=== PATIENT | male | born 1940 | race Caucasian/White ===

== ENCOUNTER 2018-03-16 01:52 | Inpatient (IN) | payer OTHER ==
[2018-03-16] MEDS ORDERED: NA PHOSPHATE/BIPHOS 133 ML ENEMA PR (06:00)
[2018-03-16] MEDS ORDERED: ALBUTEROL/IPRATROPIUM (NEB) 3 ML AMP HHN (06:00)
[2018-03-16] MEDS ORDERED: IPRATROPIUM (NEB) 0.5 MG/2.5 ML AMP HHN (06:00)
[2018-03-16] MEDS ORDERED: BISACODYL 10 MG SUPP PR (06:00)
[2018-03-16 06:42] LABS: ADD MAN DIFF? NO
[2018-03-16 06:52] LABS: WHITE BLOOD COUNT 9.5 10^3/ul (4.8-10.8)
[2018-03-16 06:52] LABS: ABNORMAL IP MESSAGE 1; BASOPHILS % 0.4 % (0.0-2.0); EOSINOPHILS # 0.1 10^3/ul (0.0-0.5); EOSINOPHILS % 0.6 % (0.0-7.0); HEMOGLOBIN 9.9 g/dl (14.0-18.0); LYMPHOCYTES # 0.4 10^3/ul (0.8-2.9); LYMPHOCYTES % 3.9 % (15.0-51.0); MEAN CORPUSCULAR HEMOGLOBIN 28.4 pg (29.0-33.0); MEAN CORPUSCULAR VOLUME 86.2 fl (82.0-101.0); MEAN PLATELET VOLUME 9.2 fl (7.4-10.4); MONOCYTE # 0.4 10^3/ul (0.3-0.9); MONOCYTES % 3.7 % (0.0-11.0); NEUTROPHIL # 8.6 10^3/ul (1.6-7.5); NEUTROPHILS % 89.9 % (39.0-77.0); PLATELET COUNT 223 10^3/UL (140-415); POSITIVE DIFF @See below; RED BLOOD COUNT 3.48 10^6/ul (4.70-6.10); RED CELL DISTRIBUTION WIDTH 14.5 % (11.5-14.5)
[2018-03-16 07:18] LABS: ANION GAP 13 (8-16); BLOOD UREA NITROGEN 13 mg/dl (7-20); CALCIUM 8.7 mg/dl (8.4-10.2); CARBON DIOXIDE 26 mmol/L (21-31); CHLORIDE 96 mmol/L (97-110); CREATININE 0.48 mg/dl (0.61-1.24); GLUCOSE 114 mg/dl (70-220); POTASSIUM 4.7 mmol/L (3.5-5.1); SODIUM 130 mmol/L (135-144)
[2018-03-16] MEDS: VANCOMYCIN 1 GM (PMX) 250 ML IVPB (07:30)
[2018-03-16] MEDS: DEXTROSE 5%-0.45% NACL 1,000 ML IV ×2 (07:30→19:20)
[2018-03-16] MEDS: PANTOPRAZOLE 40 MG INJ IV (07:31)
[2018-03-16] MEDS: morphine 2 MG INJ IV ×3 (09:29→20:30)
[2018-03-16] MEDS: CEFEPIME 1GM/50 ML (PMX) 50 ML IVPB ×2 (09:29→20:22)
[2018-03-16] MEDS ORDERED: FLUCONAZOLE 100 MG/NS (PMX) 50 ML IVPB (15:30)
[2018-03-16] MEDS: NYSTATIN SUSP 5 ML CUP PO ×2 (16:13→20:22)
[2018-03-16] MEDS: LACTULOSE ENEMA 1,000 ML BTL PR (16:13)
[2018-03-16] MEDS: FLUCONAZOLE 100 MG/NS (PMX) 50 ML IVPB (16:13)
[2018-03-17] MEDS: morphine 2 MG INJ IV ×4 (00:40→16:10)
[2018-03-17] MEDS: PANTOPRAZOLE 40 MG INJ IV (06:41)
[2018-03-17 06:45] LABS: ADD MAN DIFF? NO
[2018-03-17 06:50] LABS: ABNORMAL IP MESSAGE 1; BASOPHILS % 0.4 % (0.0-2.0); EOSINOPHILS # 0.1 10^3/ul (0.0-0.5); EOSINOPHILS % 1.3 % (0.0-7.0); HEMATOCRIT 30.2 % (42.0-52.0); HEMOGLOBIN 10.2 g/dl (14.0-18.0); LYMPHOCYTES # 0.3 10^3/ul (0.8-2.9); LYMPHOCYTES % 4.2 % (15.0-51.0); MEAN CORPUSCULAR HGB CONC 33.8 g/dl (32.0-37.0); MEAN CORPUSCULAR VOLUME 85.8 fl (82.0-101.0); MEAN PLATELET VOLUME 9.1 fl (7.4-10.4); MONOCYTE # 0.4 10^3/ul (0.3-0.9); MONOCYTES % 5.6 % (0.0-11.0); NEUTROPHIL # 6.2 10^3/ul (1.6-7.5); NEUTROPHILS % 87.2 % (39.0-77.0); PLATELET COUNT 220 10^3/UL (140-415); POSITIVE DIFF @See below; RED BLOOD COUNT 3.52 10^6/ul (4.70-6.10); RED CELL DISTRIBUTION WIDTH 14.4 % (11.5-14.5)
[2018-03-17 06:50] LABS: WHITE BLOOD COUNT 7.2 10^3/ul (4.8-10.8)
[2018-03-17 07:16] LABS: ANION GAP 15 (8-16); BLOOD UREA NITROGEN 10 mg/dl (7-20); CALCIUM 8.8 mg/dl (8.4-10.2); CARBON DIOXIDE 24 mmol/L (21-31); CHLORIDE 96 mmol/L (97-110); CREATININE 0.53 mg/dl (0.61-1.24); GLUCOSE 109 mg/dl (70-220); POTASSIUM 4.7 mmol/L (3.5-5.1); SODIUM 130 mmol/L (135-144)
[2018-03-17] MEDS: DEXTROSE 5%-0.45% NACL 1,000 ML IV ×2 (08:59→22:08)
[2018-03-17] MEDS: NYSTATIN SUSP 5 ML CUP PO ×4 (09:04→22:14)
[2018-03-17] MEDS: ONDANSETRON 4 MG INJ IV (09:05)
[2018-03-17] MEDS: CEFEPIME 1GM/50 ML (PMX) 50 ML IVPB ×2 (09:05→22:10)
[2018-03-17] MEDS: FLUCONAZOLE 200 MG/NS (PMX) 100 ML IVPB (17:10)
[2018-03-18] MEDS: PANTOPRAZOLE 40 MG INJ IV (05:48)
[2018-03-18] MEDS ORDERED: VANCOMYCIN IV PER PHARMACY XX (12:30)
[2018-03-18] MEDS: NYSTATIN SUSP 5 ML CUP PO ×4 (13:40→21:00)
[2018-03-18] MEDS: CEFEPIME 1GM/50 ML (PMX) 50 ML IVPB ×2 (13:41→20:37)
[2018-03-18] MEDS: ENOXAPARIN 40 MG/0.4 ML SYG SC (14:09)
[2018-03-18] MEDS: DEXTROSE 5%-0.45% NACL 1,000 ML IV (14:17)
[2018-03-18] MEDS: VANCOMYCIN 1.25 GM in SOD CHLORIDE 0.9% 250 ML IVPB (14:19)
[2018-03-18] MEDS: FLUCONAZOLE 200 MG/NS (PMX) 100 ML IVPB (17:46)
[2018-03-18] MEDS ORDERED: VITAMIN A & D 5 GM OINT PACKET TOP (19:45)
[2018-03-18] MEDS: morphine 2 MG INJ IV (20:32)
[2018-03-19] MEDS: DEXTROSE 5%-0.45% NACL 1,000 ML IV ×2 (00:40→14:12)
[2018-03-19] MEDS: morphine 2 MG INJ IV ×2 (03:08→23:45)
[2018-03-19] MEDS: VANCOMYCIN 750 MG in SOD CHLORIDE 0.9% 150 ML IVPB ×2 (03:08→16:11)
[2018-03-19] MEDS: PANTOPRAZOLE 40 MG INJ IV (06:54)
[2018-03-19 07:18] LABS: ADD MAN DIFF? NO
[2018-03-19 07:23] LABS: ABNORMAL IP MESSAGE 1; BASOPHILS % 0.4 % (0.0-2.0); EOSINOPHILS # 0.1 10^3/ul (0.0-0.5); EOSINOPHILS % 1.9 % (0.0-7.0); HEMATOCRIT 34.9 % (42.0-52.0); LYMPHOCYTES # 0.5 10^3/ul (0.8-2.9); LYMPHOCYTES % 9.5 % (15.0-51.0); MEAN CORPUSCULAR HEMOGLOBIN 28.7 pg (29.0-33.0); MEAN CORPUSCULAR HGB CONC 31.5 g/dl (32.0-37.0); MEAN CORPUSCULAR VOLUME 91.1 fl (82.0-101.0); MONOCYTE # 0.4 10^3/ul (0.3-0.9); MONOCYTES % 8.4 % (0.0-11.0); NEUTROPHIL # 4.1 10^3/ul (1.6-7.5); PLATELET COUNT 239 10^3/UL (140-415); POSITIVE DIFF @See below; RED BLOOD COUNT 3.83 10^6/ul (4.70-6.10); RED CELL DISTRIBUTION WIDTH 14.4 % (11.5-14.5)
[2018-03-19 07:23] LABS: WHITE BLOOD COUNT 5.1 10^3/ul (4.8-10.8)
[2018-03-19 07:35] LABS: PHOSPHORUS 2.8 mg/dl (2.5-4.9)
[2018-03-19 07:35] LABS: MAGNESIUM 2.2 mg/dl (1.7-2.5)
[2018-03-19 07:55] LABS: INR 1.25; PROTIME 15.9 Sec (11.9-14.9); PT RATIO 1.2
[2018-03-19 08:10] LABS: ANION GAP 14 (8-16); BLOOD UREA NITROGEN 8 mg/dl (7-20); CALCIUM 9.2 mg/dl (8.4-10.2); CARBON DIOXIDE 18 mmol/L (21-31); CHLORIDE 104 mmol/L (97-110); CREATININE 0.53 mg/dl (0.61-1.24); GLUCOSE 112 mg/dl (70-220); POTASSIUM 4.1 mmol/L (3.5-5.1); SODIUM 132 mmol/L (135-144)
[2018-03-19] MEDS: ENOXAPARIN 40 MG/0.4 ML SYG SC (08:10)
[2018-03-19] MEDS: CEFEPIME 1GM/50 ML (PMX) 50 ML IVPB ×2 (08:16→20:46)
[2018-03-19] MEDS: NYSTATIN SUSP 5 ML CUP PO ×4 (08:17→20:46)
[2018-03-19] MEDS: CEFAZOLIN 1 GM/50 ML (PMX) 50 ML IVPB (11:33)
[2018-03-19] MEDS: LIDOCAINE 2% (SDV) 5 ML INJ (11:53)
[2018-03-19] MEDS: PROPOFOL 60 ML (11:53)
[2018-03-19] MEDS ORDERED: morphine LIQ (10 MG/5 ML) CUP GTB (14:00)
[2018-03-19] MEDS ORDERED: morphine LIQ (10 MG/5 ML) CUP PO ×2 (14:00→18:00)
[2018-03-19] MEDS: FLUCONAZOLE 200 MG/NS (PMX) 100 ML IVPB (18:36)
[2018-03-20] MEDS: DEXTROSE 5%-0.45% NACL 1,000 ML IV ×2 (03:20→10:07)
[2018-03-20 03:37] LABS: VANCOMYCIN,TROUGH 7.8 ug/ml (10.0-20.0)
[2018-03-20] MEDS: VANCOMYCIN 1 GM 250 ML IVPB ×2 (04:19→15:37)
[2018-03-20] MEDS: PANTOPRAZOLE 40 MG INJ IV (06:13)
[2018-03-20] MEDS: NYSTATIN SUSP 5 ML CUP PO ×4 (08:37→20:42)
[2018-03-20] MEDS: CEFEPIME 1GM/50 ML (PMX) 50 ML IVPB ×2 (08:37→20:42)
[2018-03-20] MEDS: ENOXAPARIN 40 MG/0.4 ML SYG SC (09:13)
[2018-03-20] MEDS: morphine 2 MG INJ IV ×3 (10:04→22:03)
[2018-03-20] MEDS: FLUCONAZOLE 200 MG/NS (PMX) 100 ML IVPB (18:07)
[2018-03-20] MEDS ORDERED: KETOROLAC 15 MG INJ IV (22:30)
[2018-03-20] MEDS ORDERED: DIPHENHYDRAMINE 50 MG INJ IV (22:30)
[2018-03-20] MEDS ORDERED: METHYLPREDNISOLONE 125 MG INJ IV (22:30)
[2018-03-21] MEDS: VANCOMYCIN 1 GM 250 ML IVPB ×2 (03:35→16:17)
[2018-03-21] MEDS: DEXTROSE 5%-0.45% NACL 1,000 ML IV (03:35)
[2018-03-21] MEDS: PANTOPRAZOLE 40 MG INJ IV (06:44)
[2018-03-21] MEDS: CEFEPIME 1GM/50 ML (PMX) 50 ML IVPB (08:19)
[2018-03-21] MEDS: ENOXAPARIN 40 MG/0.4 ML SYG SC (08:25)
[2018-03-21] MEDS: NYSTATIN SUSP 5 ML CUP PO ×3 (08:26→17:55)
[2018-03-21] MEDS: morphine LIQ (10 MG/5 ML) CUP GTB (16:12)
[2018-03-21] MEDS: FLUCONAZOLE 200 MG/NS (PMX) 100 ML IVPB (17:55)
== END 2018-03-21 20:10 | disposition home or self-care (01) | DRG 391 ==
LOC: MS1 01:52 → TEL 03:24
PROC: 0DH63UZ Insertion of Feeding Device into Stomach, Percutaneous Approach (ICD-10-PCS; principal; 2018-03-19 11:30)
DX: R13.10 Dysphagia, unspecified (principal); E43 Unspecified severe protein-calorie malnutrition; L03.211 Cellulitis of face; E87.1 Hypo-osmolality and hyponatremia; R65.10 Systemic inflammatory response syndrome (SIRS) of non-infectious origin without acute organ dysfunction; B37.0 Candidal stomatitis; E86.0 Dehydration; C76.0 Malignant neoplasm of head, face and neck; Z68.23 Body mass index [BMI] 23.0-23.9, adult; D64.9 Anemia, unspecified; Z87.891 Personal history of nicotine dependence; I10 Essential (primary) hypertension
CPT/HCPCS: 71045; 80048; 80202; 83735; 84100; 85025; 85610; 92610

== ENCOUNTER 2018-03-26 15:17 | Emergency (ER) | payer OTHER ==
[2018-03-26] MEDS: SOD CHLORIDE 0.9% 1,000 ML IV (19:12)
[2018-03-26] MEDS: IOHEXOL 14.3 MG(I)/ML (ADULT) BTL PO (21:12)
== END 2018-03-27 01:26 | disposition home or self-care (01) ==
LOC: E/R 03-27 01:26
DX: K59.00 Constipation, unspecified (principal); Z85.830 Personal history of malignant neoplasm of bone
CPT/HCPCS: 74176; 99285-25

== ENCOUNTER 2018-05-06 10:58 | Inpatient (IN) | payer OTHER ==
[2018-05-06] MEDS: morphine 2 MG INJ IV (11:56)
[2018-05-06] MEDS: ONDANSETRON 4 MG INJ IV (11:56)
[2018-05-06 12:05] LABS: WHITE BLOOD COUNT 1.6 10^3/ul (4.8-10.8)
[2018-05-06 12:06] LABS: ABNORMAL IP MESSAGE 1; HEMATOCRIT 28.6 % (42.0-52.0); HEMOGLOBIN 9.3 g/dl (14.0-18.0); MEAN CORPUSCULAR HEMOGLOBIN 29.2 pg (29.0-33.0); MEAN CORPUSCULAR HGB CONC 32.5 g/dl (32.0-37.0); MEAN CORPUSCULAR VOLUME 89.9 fl (82.0-101.0); MEAN PLATELET VOLUME 9.3 fl (7.4-10.4); PLATELET COUNT 209 10^3/UL (140-415); POSITIVE DIFF @See below; RED BLOOD COUNT 3.18 10^6/ul (4.70-6.10); RED CELL DISTRIBUTION WIDTH 16.7 % (11.5-14.5)
[2018-05-06 12:11] LABS: ADD MAN DIFF? YES
[2018-05-06 12:37] LABS: ANION GAP 14 (8-16); BLOOD UREA NITROGEN 21 mg/dl (7-20); CARBON DIOXIDE 23 mmol/L (21-31); CHLORIDE 98 mmol/L (97-110); CREATININE 0.45 mg/dl (0.61-1.24); GLUCOSE 149 mg/dl (70-220); POTASSIUM 4.8 mmol/L (3.5-5.1); SODIUM 130 mmol/L (135-144)
[2018-05-06 13:06] LABS: ANISOCYTOSIS 1+ (0-0); BAND NEUTROPHILS #M 0.1 10^3/ul (0.0-0.6); BAND NEUTROPHILS % (M) 12 % (0-4); EOSINOPHILS % (M) 2 % (0-7); ERYTHROBLAST% (NRBC) (M) 1 % (0-0); LYMPHOCYTES #M 0.2 10^3/ul (0.8-2.9); LYMPHOCYTES % (M) 13 % (15-51); MICROCYTOSIS 1+ (0-0); MONOCYTE #M 0.2 10^3/ul (0.3-0.9); MONOCYTES % (M) 14 % (0-11); PLATELET ESTIMATE NORMAL; POIKILOCYTOSIS 1+ (0-0); POLYCHROMASIA 3+ (0-0); SEG NEUT #M 0.9 10^3/ul (1.6-7.5); SEGMENTED NEUTROPHILS (M) % 59 % (39-77); SMUDGE%M 2 % (0-0)
[2018-05-06] MEDS ORDERED: ONDANSETRON 4 MG INJ IV (17:00)
[2018-05-06] MEDS ORDERED: NACL 0.9% 3 ML SYG IV (17:00)
[2018-05-06] MEDS ORDERED: NA PHOSPHATE/BIPHOS 133 ML ENEMA PR (17:00)
[2018-05-06] MEDS ORDERED: FLUCONAZOLE 200 MG (PMX) 100 ML IVPB (18:00)
[2018-05-06] MEDS: SOD CHLORIDE 0.9% 1,000 ML IV (18:15)
[2018-05-06] MEDS: NYSTATIN SUSP 5 ML CUP PO ×2 (18:44→21:47)
[2018-05-06] MEDS: VORICONAZOLE 200 MG TAB GTB (21:47)
[2018-05-07] MEDS: morphine 2 MG INJ IV ×4 (00:06→21:33)
[2018-05-07] MEDS: PANTOPRAZOLE 40 MG INJ IV (05:11)
[2018-05-07] MEDS: SOD CHLORIDE 0.9% 1,000 ML IV ×2 (05:12→09:50)
[2018-05-07 05:36] LABS: ADD MAN DIFF? NO
[2018-05-07 05:41] LABS: ABNORMAL IP MESSAGE 1; BASOPHILS % 0.6 % (0.0-2.0); EOSINOPHILS % 0.6 % (0.0-7.0); HEMATOCRIT 27.4 % (42.0-52.0); LYMPHOCYTES # 0.2 10^3/ul (0.8-2.9); LYMPHOCYTES % 13.5 % (15.0-51.0); MEAN CORPUSCULAR HEMOGLOBIN 29.9 pg (29.0-33.0); MEAN CORPUSCULAR HGB CONC 32.8 g/dl (32.0-37.0); MEAN PLATELET VOLUME 9.5 fl (7.4-10.4); MONOCYTE # 0.4 10^3/ul (0.3-0.9); MONOCYTES % 28.4 % (0.0-11.0); NEUTROPHIL # 0.9 10^3/ul (1.6-7.5); NEUTROPHILS % 56.3 % (39.0-77.0); PLATELET COUNT 204 10^3/UL (140-415); POSITIVE DIFF @See below; RED BLOOD COUNT 3.01 10^6/ul (4.70-6.10)
[2018-05-07 05:41] LABS: WHITE BLOOD COUNT 1.6 10^3/ul (4.8-10.8)
[2018-05-07 07:44] LABS: ANION GAP 13 (8-16); BLOOD UREA NITROGEN 17 mg/dl (7-20); CALCIUM 8.8 mg/dl (8.4-10.2); CARBON DIOXIDE 25 mmol/L (21-31); CHLORIDE 99 mmol/L (97-110); CREATININE 0.47 mg/dl (0.61-1.24); GLUCOSE 131 mg/dl (70-220); POTASSIUM 4.7 mmol/L (3.5-5.1); SODIUM 132 mmol/L (135-144)
[2018-05-07] MEDS: VORICONAZOLE 200 MG TAB GTB ×2 (08:43→21:33)
[2018-05-07] MEDS: NYSTATIN SUSP 5 ML CUP PO ×4 (08:43→21:33)
[2018-05-07] MEDS: ENOXAPARIN 40 MG/0.4 ML SYG SC (08:46)
[2018-05-07] MEDS: DIPHENHYD/MYLANTA/LIDO (PO SYG) PO ×2 (12:42→21:34)
[2018-05-07] MEDS: morphine LIQ (10 MG/5 ML) CUP PO (15:34)
[2018-05-07] MEDS: FILGRASTIM 480 MCG INJ SC (18:03)
[2018-05-07] MEDS: CLOTRIMAZOLE 10 MG TROCHE MT (21:33)
[2018-05-08] MEDS: SOD CHLORIDE 0.9% 1,000 ML IV ×3 (01:57→21:55)
[2018-05-08] MEDS: PANTOPRAZOLE 40 MG INJ IV (05:20)
[2018-05-08 06:16] LABS: ADD MAN DIFF? NO
[2018-05-08 06:17] LABS: ABNORMAL IP MESSAGE 1; BASOPHILS % 0.2 % (0.0-2.0); HEMATOCRIT 27.3 % (42.0-52.0); HEMOGLOBIN 9.1 g/dl (14.0-18.0); LYMPHOCYTES # 0.2 10^3/ul (0.8-2.9); LYMPHOCYTES % 4.6 % (15.0-51.0); MEAN CORPUSCULAR HEMOGLOBIN 30.2 pg (29.0-33.0); MEAN CORPUSCULAR HGB CONC 33.3 g/dl (32.0-37.0); MEAN CORPUSCULAR VOLUME 90.7 fl (82.0-101.0); MEAN PLATELET VOLUME 9.3 fl (7.4-10.4); MONOCYTE # 0.5 10^3/ul (0.3-0.9); MONOCYTES % 11.1 % (0.0-11.0); NEUTROPHIL # 3.4 10^3/ul (1.6-7.5); NEUTROPHILS % 82.9 % (39.0-77.0); PLATELET COUNT 195 10^3/UL (140-415); POSITIVE DIFF @See below; RED BLOOD COUNT 3.01 10^6/ul (4.70-6.10); RED CELL DISTRIBUTION WIDTH 17.4 % (11.5-14.5)
[2018-05-08 06:17] LABS: WHITE BLOOD COUNT 4.1 10^3/ul (4.8-10.8)
[2018-05-08 07:48] LABS: ANISOCYTOSIS 1+ (0-0); BAND NEUTROPHILS % (M) 49 % (0-4); GIANT THROMBO% (M) 1 % (0-0); LYMPHOCYTES #M 0.2 10^3/ul (0.8-2.9); LYMPHOCYTES % (M) 5 % (15-51); MONOCYTE #M 0.6 10^3/ul (0.3-0.9); MONOCYTES % (M) 15 % (0-11); PLATELET ESTIMATE NORMAL; POLYCHROMASIA 1+ (0-0); REACTIVE LYMPHOCYTES% (M) 2 % (0-0); SEG NEUT #M 1.3 10^3/ul (1.6-7.5); SEGMENTED NEUTROPHILS (M) % 29 % (39-77); SMUDGE%M 7 % (0-0)
[2018-05-08] MEDS: NYSTATIN SUSP 5 ML CUP PO ×4 (08:56→21:17)
[2018-05-08] MEDS: CLOTRIMAZOLE 10 MG TROCHE MT ×3 (09:00→21:17)
[2018-05-08] MEDS: VORICONAZOLE 200 MG TAB GTB ×2 (09:00→21:17)
[2018-05-08] MEDS: ENOXAPARIN 40 MG/0.4 ML SYG SC (09:02)
[2018-05-08] MEDS: morphine 2 MG INJ IV ×3 (09:15→21:12)
[2018-05-08] MEDS: DIPHENHYD/MYLANTA/LIDO (PO SYG) PO ×4 (09:39→21:20)
[2018-05-08] MEDS ORDERED: D5W-0.45 NACL + KCL 20 MEQ 0 ML IV (21:49)
[2018-05-09] MEDS: morphine 2 MG INJ IV ×5 (01:09→20:04)
[2018-05-09] MEDS: PANTOPRAZOLE 40 MG INJ IV (05:18)
[2018-05-09] MEDS: LEVOFLOXACIN 500 MG TAB NGT (05:24)
[2018-05-09 05:49] LABS: ANION GAP 11 (8-16); BLOOD UREA NITROGEN 12 mg/dl (7-20); CALCIUM 8.8 mg/dl (8.4-10.2); CARBON DIOXIDE 23 mmol/L (21-31); CHLORIDE 105 mmol/L (97-110); CREATININE 0.47 mg/dl (0.61-1.24); GLUCOSE 125 mg/dl (70-220); SODIUM 135 mmol/L (135-144)
[2018-05-09] MEDS: VORICONAZOLE 200 MG TAB GTB ×2 (08:57→20:04)
[2018-05-09] MEDS: CLOTRIMAZOLE 10 MG TROCHE MT ×3 (08:57→20:04)
[2018-05-09] MEDS: NYSTATIN SUSP 5 ML CUP PO ×4 (08:57→20:04)
[2018-05-09] MEDS: ENOXAPARIN 40 MG/0.4 ML SYG SC (08:57)
[2018-05-09] MEDS: DIPHENHYD/MYLANTA/LIDO (PO SYG) PO ×4 (11:33→20:04)
[2018-05-09] MEDS ORDERED: VANCOMYCIN IV PER PHARMACY XX (15:00)
[2018-05-09] MEDS: VANCOMYCIN 1.25 GM in SOD CHLORIDE 0.9% 250 ML IVPB (16:42)
[2018-05-09] MEDS ORDERED: DOCUSATE SODIUM 10 MG/ML (10ML CUP) (19:58)
[2018-05-09] MEDS ORDERED: DOCUSATE SODIUM 100 MG CAP PO (21:00)
[2018-05-09] MEDS: DOCUSATE SODIUM 10 MG/ML (10ML CUP) GTB (21:00)
[2018-05-10] MEDS: VANCOMYCIN 1 GM 250 ML IVPB ×2 (03:57→15:20)
[2018-05-10] MEDS: morphine 2 MG INJ IV ×4 (03:57→13:32)
[2018-05-10] MEDS: SOD CHLORIDE 0.9% 1,000 ML IV (03:58)
[2018-05-10 05:16] LABS: WHITE BLOOD COUNT 1.8 10^3/ul (4.8-10.8)
[2018-05-10 05:16] LABS: ABNORMAL IP MESSAGE 1; HEMATOCRIT 26.1 % (42.0-52.0); HEMOGLOBIN 8.4 g/dl (14.0-18.0); MEAN CORPUSCULAR HEMOGLOBIN 29.7 pg (29.0-33.0); MEAN CORPUSCULAR HGB CONC 32.2 g/dl (32.0-37.0); MEAN CORPUSCULAR VOLUME 92.2 fl (82.0-101.0); MEAN PLATELET VOLUME 8.9 fl (7.4-10.4); PLATELET COUNT 193 10^3/UL (140-415); POSITIVE DIFF @See below; RED BLOOD COUNT 2.83 10^6/ul (4.70-6.10); RED CELL DISTRIBUTION WIDTH 17.6 % (11.5-14.5)
[2018-05-10 05:21] LABS: ADD MAN DIFF? YES
[2018-05-10] MEDS: LEVOFLOXACIN 500 MG TAB NGT (05:25)
[2018-05-10 05:36] LABS: MAGNESIUM 2.1 mg/dl (1.7-2.5)
[2018-05-10 05:36] LABS: PHOSPHORUS 2.9 mg/dl (2.5-4.9)
[2018-05-10] MEDS: PANTOPRAZOLE 40 MG INJ IV (05:36)
[2018-05-10 05:41] LABS: ANION GAP 10 (8-16); BLOOD UREA NITROGEN 12 mg/dl (7-20); CALCIUM 8.9 mg/dl (8.4-10.2); CARBON DIOXIDE 27 mmol/L (21-31); CHLORIDE 104 mmol/L (97-110); GLUCOSE 116 mg/dl (70-220); POTASSIUM 4.5 mmol/L (3.5-5.1); SODIUM 136 mmol/L (135-144)
[2018-05-10 07:31] LABS: ANISOCYTOSIS 1+ (0-0); BAND NEUTROPHILS #M 0.4 10^3/ul (0.0-0.6); BAND NEUTROPHILS % (M) 26 % (0-4); LYMPHOCYTES #M 0.2 10^3/ul (0.8-2.9); LYMPHOCYTES % (M) 13 % (15-51); METAMYELOCYTES %M 1 % (0-0); MONOCYTE #M 0.2 10^3/ul (0.3-0.9); MONOCYTES % (M) 12 % (0-11); MYELOCYTES % (M) 1 % (0-0); PLATELET ESTIMATE NORMAL; POIKILOCYTOSIS 1+ (0-0); POLYCHROMASIA 2+ (0-0); PROMYELOCYTES % (M) 1 % (0-0); REACTIVE LYMPHOCYTES% (M) 2 % (0-0); SEG NEUT #M 0.8 10^3/ul (1.6-7.5); SEGMENTED NEUTROPHILS (M) % 44 % (39-77); SMUDGE%M 16 % (0-0); SPHEROCYTES 1+ (0-0)
[2018-05-10] MEDS: CLOTRIMAZOLE 10 MG TROCHE MT ×3 (08:32→20:58)
[2018-05-10] MEDS: DOCUSATE SODIUM 10 MG/ML (10ML CUP) GTB ×2 (08:32→20:58)
[2018-05-10] MEDS: POLYETHYLENE GLYCOL 17 GM PACKET NGT (08:32)
[2018-05-10] MEDS: DIPHENHYD/MYLANTA/LIDO (PO SYG) PO ×4 (08:32→20:58)
[2018-05-10] MEDS: VORICONAZOLE 200 MG TAB GTB ×2 (08:32→20:59)
[2018-05-10] MEDS: NYSTATIN SUSP 5 ML CUP PO ×4 (08:32→20:59)
[2018-05-10] MEDS: ENOXAPARIN 40 MG/0.4 ML SYG SC (08:33)
[2018-05-10] MEDS: FILGRASTIM 480 MCG INJ SC (16:41)
[2018-05-10] MEDS: morphine LIQ (10 MG/5 ML) CUP PO ×2 (17:32→21:46)
[2018-05-11] MEDS: morphine LIQ (10 MG/5 ML) CUP PO ×5 (01:47→18:41)
[2018-05-11 03:57] LABS: ANION GAP 14 (8-16); BLOOD UREA NITROGEN 13 mg/dl (7-20); CALCIUM 9.1 mg/dl (8.4-10.2); CARBON DIOXIDE 26 mmol/L (21-31); CHLORIDE 105 mmol/L (97-110); CREATININE 0.51 mg/dl (0.61-1.24); GLUCOSE 118 mg/dl (70-220); POTASSIUM 4.5 mmol/L (3.5-5.1); SODIUM 140 mmol/L (135-144)
[2018-05-11 04:01] LABS: VANCOMYCIN,TROUGH 11.2 ug/ml (10.0-20.0)
[2018-05-11 04:10] LABS: WHITE BLOOD COUNT 5.2 10^3/ul (4.8-10.8)
[2018-05-11 04:11] LABS: ABNORMAL IP MESSAGE 1; HEMATOCRIT 26.1 % (42.0-52.0); HEMOGLOBIN 8.4 g/dl (14.0-18.0); IMMATURE GRANS #M 0.27 10^3/ul; IMMATURE GRANS % (M) 5.2 %; MEAN CORPUSCULAR HGB CONC 32.2 g/dl (32.0-37.0); MEAN CORPUSCULAR VOLUME 93.2 fl (82.0-101.0); MEAN PLATELET VOLUME 9.4 fl (7.4-10.4); NUCLEATED RED BLOOD CELLS% 0.4 /100WBC (0.0-0.0); PLATELET COUNT 197 10^3/UL (140-415); POSITIVE DIFF @See below; RED CELL DISTRIBUTION WIDTH 17.7 % (11.5-14.5)
[2018-05-11 04:12] LABS: ADD MAN DIFF? YES
[2018-05-11] MEDS: VANCOMYCIN 1 GM 250 ML IVPB ×2 (04:16→16:20)
[2018-05-11 05:01] LABS: ANISOCYTOSIS 1+ (0-0); BAND NEUTROPHILS #M 1.7 10^3/ul (0.0-0.6); BAND NEUTROPHILS % (M) 34 % (0-4); EOSINOPHILS % (M) 1 % (0-7); LYMPHOCYTES #M 0.3 10^3/ul (0.8-2.9); LYMPHOCYTES % (M) 6 % (15-51); MONOCYTE #M 0.3 10^3/ul (0.3-0.9); MONOCYTES % (M) 7 % (0-11); PLATELET ESTIMATE NORMAL; POLYCHROMASIA 2+ (0-0); REACTIVE LYMPHOCYTES% (M) 1 % (0-0); SEG NEUT #M 2.7 10^3/ul (1.6-7.5); SEGMENTED NEUTROPHILS (M) % 51 % (39-77); SMUDGE%M 4 % (0-0)
[2018-05-11] MEDS: PANTOPRAZOLE 40 MG INJ IV (05:30)
[2018-05-11] MEDS: LEVOFLOXACIN 500 MG TAB NGT (05:30)
[2018-05-11] MEDS: DOCUSATE SODIUM 10 MG/ML (10ML CUP) GTB ×2 (08:44→20:55)
[2018-05-11] MEDS: NYSTATIN SUSP 5 ML CUP PO ×4 (08:45→20:55)
[2018-05-11] MEDS: DIPHENHYD/MYLANTA/LIDO (PO SYG) PO ×4 (08:45→20:56)
[2018-05-11] MEDS: VORICONAZOLE 200 MG TAB GTB ×2 (08:45→20:56)
[2018-05-11] MEDS: CLOTRIMAZOLE 10 MG TROCHE MT ×3 (08:45→20:56)
[2018-05-11] MEDS: ENOXAPARIN 40 MG/0.4 ML SYG SC (08:46)
[2018-05-11] MEDS ORDERED: BISACODYL 10 MG SUPP PR (10:30)
[2018-05-11] MEDS: MINERAL OIL 133 ML ENEMA PR (13:00)
[2018-05-11] MEDS: FILGRASTIM 480 MCG INJ SC (17:02)
[2018-05-11] MEDS: SOD CHLORIDE 0.9% 1,000 ML IV (21:09)
[2018-05-11] MEDS: morphine LIQ (10 MG/5 ML) CUP GTB (22:44)
[2018-05-12] MEDS: morphine LIQ (10 MG/5 ML) CUP GTB ×4 (03:03→21:31)
[2018-05-12] MEDS: VANCOMYCIN 1 GM 250 ML IVPB ×2 (04:17→15:46)
[2018-05-12 05:12] LABS: WHITE BLOOD COUNT 9.9 10^3/ul (4.8-10.8)
[2018-05-12 05:12] LABS: ABNORMAL IP MESSAGE 1; HEMOGLOBIN 8.6 g/dl (14.0-18.0); IMMATURE GRANS #M 1.15 10^3/ul; IMMATURE GRANS % (M) 11.7 %; MEAN CORPUSCULAR HEMOGLOBIN 29.5 pg (29.0-33.0); MEAN CORPUSCULAR HGB CONC 31.9 g/dl (32.0-37.0); MEAN CORPUSCULAR VOLUME 92.5 fl (82.0-101.0); MEAN PLATELET VOLUME 9.4 fl (7.4-10.4); NUCLEATED RED BLOOD CELLS% 0.3 /100WBC (0.0-0.0); PLATELET COUNT 191 10^3/UL (140-415); POSITIVE DIFF @See below; RED BLOOD COUNT 2.92 10^6/ul (4.70-6.10); RED CELL DISTRIBUTION WIDTH 17.9 % (11.5-14.5)
[2018-05-12 05:26] LABS: ADD MAN DIFF? YES
[2018-05-12] MEDS: PANTOPRAZOLE 40 MG INJ IV (05:27)
[2018-05-12] MEDS: LEVOFLOXACIN 500 MG TAB NGT (05:27)
[2018-05-12] MEDS: DIPHENHYD/MYLANTA/LIDO (PO SYG) PO ×4 (08:21→20:43)
[2018-05-12] MEDS: ENOXAPARIN 40 MG/0.4 ML SYG SC (08:21)
[2018-05-12] MEDS: NYSTATIN SUSP 5 ML CUP PO ×4 (08:21→20:43)
[2018-05-12] MEDS: CLOTRIMAZOLE 10 MG TROCHE MT ×3 (08:21→20:43)
[2018-05-12] MEDS: VORICONAZOLE 200 MG TAB GTB ×2 (08:21→20:43)
[2018-05-12] MEDS: DOCUSATE SODIUM 10 MG/ML (10ML CUP) GTB ×2 (08:21→20:43)
[2018-05-12 09:06] LABS: ANISOCYTOSIS 1+ (0-0); BAND NEUTROPHILS % (M) 51 % (0-4); DIMORPHIC RBC 1+ (0-0); LYMPHOCYTES % (M) 1 % (15-51); METAMYELOCYTES %M 1 % (0-0); MONOCYTE #M 0.6 10^3/ul (0.3-0.9); MONOCYTES % (M) 7 % (0-11); PLATELET ESTIMATE NORMAL; POLYCHROMASIA 2+ (0-0); REACTIVE LYMPHOCYTES #M 0.1 10^3/ul (0.0-0.0); REACTIVE LYMPHOCYTES% (M) 2 % (0-0); SEG NEUT #M 4.3 10^3/ul (1.6-7.5); SEGMENTED NEUTROPHILS (M) % 38 % (39-77); SMUDGE%M 16 % (0-0)
[2018-05-12] MEDS: FILGRASTIM 480 MCG INJ SC (16:50)
[2018-05-13] MEDS: morphine LIQ (10 MG/5 ML) CUP GTB ×6 (01:49→22:25)
[2018-05-13] MEDS: SOD CHLORIDE 0.9% 1,000 ML IV (01:50)
[2018-05-13] MEDS: VANCOMYCIN 1 GM 250 ML IVPB ×2 (03:58→15:53)
[2018-05-13] MEDS: PANTOPRAZOLE 40 MG INJ IV (05:22)
[2018-05-13] MEDS: LEVOFLOXACIN 500 MG TAB NGT (05:22)
[2018-05-13] MEDS: DOCUSATE SODIUM 10 MG/ML (10ML CUP) GTB ×2 (09:17→22:06)
[2018-05-13] MEDS: CLOTRIMAZOLE 10 MG TROCHE MT ×3 (09:17→22:07)
[2018-05-13] MEDS: NYSTATIN SUSP 5 ML CUP PO ×4 (09:17→22:06)
[2018-05-13] MEDS: ENOXAPARIN 40 MG/0.4 ML SYG SC (09:17)
[2018-05-13] MEDS: VORICONAZOLE 200 MG TAB GTB ×2 (09:17→22:07)
[2018-05-13] MEDS: DIPHENHYD/MYLANTA/LIDO (PO SYG) PO ×4 (09:19→22:07)
[2018-05-14] MEDS: morphine LIQ (10 MG/5 ML) CUP GTB ×4 (02:49→21:18)
[2018-05-14 04:06] LABS: BLOOD UREA NITROGEN 9 mg/dl (7-20)
[2018-05-14 04:06] LABS: CREATININE 0.48 mg/dl (0.61-1.24)
[2018-05-14 04:10] LABS: VANCOMYCIN,TROUGH 13.6 ug/ml (10.0-20.0)
[2018-05-14] MEDS: VANCOMYCIN 1 GM 250 ML IVPB ×2 (04:25→15:44)
[2018-05-14] MEDS: PANTOPRAZOLE 40 MG INJ IV (06:56)
[2018-05-14] MEDS: LEVOFLOXACIN 500 MG TAB NGT (06:56)
[2018-05-14] MEDS: NYSTATIN SUSP 5 ML CUP PO ×4 (09:01→21:15)
[2018-05-14] MEDS: VORICONAZOLE 200 MG TAB GTB ×2 (09:01→21:15)
[2018-05-14] MEDS: DIPHENHYD/MYLANTA/LIDO (PO SYG) PO ×4 (09:01→21:15)
[2018-05-14] MEDS: DOCUSATE SODIUM 10 MG/ML (10ML CUP) GTB ×2 (09:01→21:15)
[2018-05-14] MEDS: ENOXAPARIN 40 MG/0.4 ML SYG SC (09:02)
[2018-05-14] MEDS: CLOTRIMAZOLE 10 MG TROCHE MT ×3 (09:03→21:15)
[2018-05-15] MEDS: VANCOMYCIN 1 GM 250 ML IVPB (03:53)
[2018-05-15] MEDS: PANTOPRAZOLE 40 MG INJ IV (05:55)
[2018-05-15] MEDS: LEVOFLOXACIN 500 MG TAB NGT (05:55)
[2018-05-15] MEDS: DOCUSATE SODIUM 10 MG/ML (10ML CUP) GTB (09:11)
[2018-05-15] MEDS: morphine LIQ (10 MG/5 ML) CUP GTB (09:11)
[2018-05-15] MEDS: NYSTATIN SUSP 5 ML CUP PO ×2 (09:11→13:33)
[2018-05-15] MEDS: CLOTRIMAZOLE 10 MG TROCHE MT ×2 (09:12→13:33)
[2018-05-15] MEDS: VORICONAZOLE 200 MG TAB GTB (09:12)
[2018-05-15] MEDS: DIPHENHYD/MYLANTA/LIDO (PO SYG) PO ×2 (09:12→13:33)
[2018-05-15] MEDS: ENOXAPARIN 40 MG/0.4 ML SYG SC (09:14)
== END 2018-05-15 15:13 | disposition home health service (06) | DRG 157 ==
LOC: E/R 10:58 → PP2 14:21
DX: K12.33 Oral mucositis (ulcerative) due to radiation (principal); D61.810 Antineoplastic chemotherapy induced pancytopenia; L03.211 Cellulitis of face; B37.0 Candidal stomatitis; C41.1 Malignant neoplasm of mandible; E87.1 Hypo-osmolality and hyponatremia; R13.10 Dysphagia, unspecified; Z93.1 Gastrostomy status; I10 Essential (primary) hypertension; Z87.891 Personal history of nicotine dependence; B96.1 Klebsiella pneumoniae [K. pneumoniae] as the cause of diseases classified elsewhere; B95.61 Methicillin susceptible Staphylococcus aureus infection as the cause of diseases classified elsewhere; R59.9 Enlarged lymph nodes, unspecified
CPT/HCPCS: 36415; 71045; 80048; 80202; 82565; 83036; 83735; 84100; 84520; 85025; 87070; 87081; 92610; 96374; 96375; 97162; 99285-25

== ENCOUNTER 2018-06-11 12:38 | Emergency (ER) | payer OTHER ==
[2018-06-11 14:15] LABS: ANION GAP 14 (8-16); BLOOD UREA NITROGEN 19 mg/dl (7-20); CALCIUM 9.7 mg/dl (8.4-10.2); CARBON DIOXIDE 28 mmol/L (21-31); CHLORIDE 100 mmol/L (97-110); CREATININE 0.56 mg/dl (0.61-1.24); GLUCOSE 100 mg/dl (70-220); POTASSIUM 4.8 mmol/L (3.5-5.1); SODIUM 137 mmol/L (135-144)
[2018-06-11] MEDS: SOD CHLORIDE 0.9% 500 ML IV (14:24)
[2018-06-11] MEDS: IODIXANOL LOCM 100 ML BTL (15:19)
[2018-06-11] MEDS: SOD CHLORIDE 0.9% 100 ML (15:19)
[2018-06-11] MEDS: morphine 4 MG/ML VIAL IV (16:14)
== END 2018-06-11 17:28 | disposition home or self-care (01) ==
LOC: E/R 12:38
DX: C41.1 Malignant neoplasm of mandible (principal)
CPT/HCPCS: 70491; 80048; 96374; 99285-25

== ENCOUNTER 2018-08-26 05:50 | Inpatient (IN) | payer OTHER ==
[2018-08-26] MEDS: morphine 2 MG INJ IV ×2 (06:56→14:36)
[2018-08-26] MEDS: DEXTROSE 5%-0.45% NACL 1,000 ML IV (06:57)
[2018-08-26] MEDS ORDERED: ACETAMINOPHEN 650MG/20.3ML CUP GTB (07:00)
[2018-08-26 08:54] LABS: ADD MAN DIFF? NO
[2018-08-26 08:58] LABS: WHITE BLOOD COUNT 12.3 10^3/ul (4.8-10.8)
[2018-08-26 08:58] LABS: ABNORMAL IP MESSAGE 1; BASOPHILS % 0.2 % (0.0-2.0); HEMATOCRIT 32.5 % (42.0-52.0); HEMOGLOBIN 10.2 g/dl (14.0-18.0); LYMPHOCYTES # 0.5 10^3/ul (0.8-2.9); MEAN CORPUSCULAR HEMOGLOBIN 26.4 pg (29.0-33.0); MEAN CORPUSCULAR HGB CONC 31.4 g/dl (32.0-37.0); MEAN PLATELET VOLUME 9.2 fl (7.4-10.4); MONOCYTE # 0.1 10^3/ul (0.3-0.9); MONOCYTES % 0.7 % (0.0-11.0); NEUTROPHIL # 11.6 10^3/ul (1.6-7.5); NEUTROPHILS % 94.5 % (39.0-77.0); PLATELET COUNT 458 10^3/UL (140-415); POSITIVE DIFF @See below; RED BLOOD COUNT 3.87 10^6/ul (4.70-6.10); RED CELL DISTRIBUTION WIDTH 14.2 % (11.5-14.5)
[2018-08-26 09:24] LABS: ALANINE AMINOTRANSFERASE 13 IU/L (13-69); ALBUMIN 3.6 g/dl (3.3-4.9); ALBUMIN/GLOBULIN RATIO 0.94; ALKALINE PHOSPHATASE 95 IU/L (42-121); ANION GAP 12 (5-13); ASPARTATE AMINO TRANSFERASE 21 IU/L (15-46); BILIRUBIN,INDIRECT 0.4 mg/dl (0-1.1); BILIRUBIN,TOTAL 0.4 mg/dl (0.2-1.3); BLOOD UREA NITROGEN 13 mg/dl (7-20); CALCIUM 10.2 mg/dl (8.4-10.2); CARBON DIOXIDE 28 mmol/L (21-31); CHLORIDE 97 mmol/L (97-110); CREATININE 0.59 mg/dl (0.61-1.24); GLUCOSE 162 mg/dl (70-220); POTASSIUM 4.6 mmol/L (3.5-5.1); SODIUM 137 mmol/L (135-144); TOTAL PROTEIN 7.4 g/dl (6.1-8.1)
[2018-08-26] MEDS: PANTOPRAZOLE 40 MG INJ IV (10:03)
[2018-08-26] MEDS: CEFTRIAXONE 1 GM/50 ML (PMX) 50 ML IVPB (13:34)
[2018-08-26] MEDS: ENOXAPARIN 40 MG/0.4 ML SYG SC (13:40)
[2018-08-26] MEDS: CLOTRIMAZOLE 10 MG TROCHE MT ×2 (14:35→21:55)
[2018-08-26] MEDS: DEXAMETHASONE 4 MG/ML 1 ML INJ IV ×2 (14:36→21:55)
[2018-08-26] MEDS: VORICONAZOLE 200 MG/100 ML 100 ML IVPB ×2 (16:24→21:55)
[2018-08-27 01:21] LABS: ADD UMIC NO; UR ASCORBIC ACID 20 mg/dL (NEGATIVE); UR BACTERIA FEW /HPF (NONE SEEN); UR BILIRUBIN (Dip) NEGATIVE (NEGATIVE); UR BLOOD (Dip) NEGATIVE (NEGATIVE); UR CLARITY SLIGHTLY CLOUDY (CLEAR); UR COLOR YELLOW (YELLOW); UR GLUCOSE (Dip) NEGATIVE (NEGATIVE); UR KETONES (Dip) NEGATIVE (NEGATIVE); UR LEUKOCYTE ESTERASE (Dip) NEGATIVE Leu/ul (NEGATIVE); UR MUCUS FEW /HPF (NONE SEEN); UR NITRITE (Dip) NEGATIVE (NEGATIVE); UR RBC 1 /HPF (0-5); UR SPECIFIC GRAVITY (Dip) 1.014 (1.003-1.030); UR TOTAL PROTEIN (Dip) NEGATIVE (NEGATIVE); UR UROBILINOGEN (Dip) NEGATIVE (NEGATIVE); UR WBC 1 /HPF (0-5)
[2018-08-27] MEDS: DEXTROSE 5%-0.45% NACL 1,000 ML IV (03:00)
[2018-08-27 05:42] LABS: ADD MAN DIFF? NO
[2018-08-27 05:43] LABS: ABNORMAL IP MESSAGE 1; HEMATOCRIT 29.3 % (42.0-52.0); HEMOGLOBIN 9.2 g/dl (14.0-18.0); LYMPHOCYTES # 0.4 10^3/ul (0.8-2.9); LYMPHOCYTES % 3.8 % (15.0-51.0); MEAN CORPUSCULAR HEMOGLOBIN 26.6 pg (29.0-33.0); MEAN CORPUSCULAR HGB CONC 31.4 g/dl (32.0-37.0); MEAN CORPUSCULAR VOLUME 84.7 fl (82.0-101.0); MEAN PLATELET VOLUME 9.6 fl (7.4-10.4); MONOCYTE # 0.2 10^3/ul (0.3-0.9); MONOCYTES % 2.3 % (0.0-11.0); NEUTROPHIL # 8.8 10^3/ul (1.6-7.5); NEUTROPHILS % 93.2 % (39.0-77.0); PLATELET COUNT 380 10^3/UL (140-415); POSITIVE DIFF @See below; RED BLOOD COUNT 3.46 10^6/ul (4.70-6.10); RED CELL DISTRIBUTION WIDTH 14.3 % (11.5-14.5)
[2018-08-27 05:43] LABS: WHITE BLOOD COUNT 9.5 10^3/ul (4.8-10.8)
[2018-08-27] MEDS: PANTOPRAZOLE 40 MG INJ IV (06:08)
[2018-08-27] MEDS: DEXAMETHASONE 4 MG/ML 1 ML INJ IV ×2 (06:08→20:48)
[2018-08-27 06:24] LABS: ANION GAP 10 (5-13); BLOOD UREA NITROGEN 19 mg/dl (7-20); CARBON DIOXIDE 29 mmol/L (21-31); CHLORIDE 99 mmol/L (97-110); CREATININE 0.56 mg/dl (0.61-1.24); GLUCOSE 155 mg/dl (70-220); POTASSIUM 3.6 mmol/L (3.5-5.1); SODIUM 138 mmol/L (135-144)
[2018-08-27 06:25] LABS: MAGNESIUM 2.2 mg/dl (1.7-2.5)
[2018-08-27 06:25] LABS: PHOSPHORUS 3.2 mg/dl (2.5-4.9)
[2018-08-27] MEDS: CLOTRIMAZOLE 10 MG TROCHE MT ×3 (09:12→20:49)
[2018-08-27] MEDS: ENOXAPARIN 40 MG/0.4 ML SYG SC (09:16)
[2018-08-27] MEDS: VORICONAZOLE 200 MG/100 ML 100 ML IVPB ×2 (11:30→20:48)
[2018-08-27] MEDS: CEFTRIAXONE 1 GM/50 ML (PMX) 50 ML IVPB (12:34)
[2018-08-27] MEDS: morphine 2 MG INJ IV (16:50)
[2018-08-28] MEDS: PANTOPRAZOLE 40 MG INJ IV (05:19)
[2018-08-28 05:45] LABS: ADD MAN DIFF? NO
[2018-08-28 05:48] LABS: ABNORMAL IP MESSAGE 1; BASOPHILS % 0.1 % (0.0-2.0); HEMOGLOBIN 9.3 g/dl (14.0-18.0); LYMPHOCYTES # 0.4 10^3/ul (0.8-2.9); LYMPHOCYTES % 2.9 % (15.0-51.0); MEAN CORPUSCULAR HEMOGLOBIN 27.2 pg (29.0-33.0); MEAN CORPUSCULAR HGB CONC 32.1 g/dl (32.0-37.0); MEAN CORPUSCULAR VOLUME 84.8 fl (82.0-101.0); MEAN PLATELET VOLUME 9.6 fl (7.4-10.4); MONOCYTE # 0.3 10^3/ul (0.3-0.9); NEUTROPHIL # 12.5 10^3/ul (1.6-7.5); NEUTROPHILS % 94.3 % (39.0-77.0); PLATELET COUNT 380 10^3/UL (140-415); POSITIVE DIFF @See below; RED BLOOD COUNT 3.42 10^6/ul (4.70-6.10); RED CELL DISTRIBUTION WIDTH 14.5 % (11.5-14.5)
[2018-08-28 05:48] LABS: WHITE BLOOD COUNT 13.3 10^3/ul (4.8-10.8)
[2018-08-28] MEDS: VORICONAZOLE 200 MG/100 ML 100 ML IVPB (08:39)
[2018-08-28] MEDS: CLOTRIMAZOLE 10 MG TROCHE MT ×2 (08:39→12:29)
[2018-08-28] MEDS: DEXAMETHASONE 4 MG/ML 1 ML INJ IV (08:39)
[2018-08-28] MEDS: morphine 2 MG INJ IV ×3 (08:51→21:46)
[2018-08-28] MEDS: ENOXAPARIN 40 MG/0.4 ML SYG SC (08:53)
[2018-08-28] MEDS: CEFTRIAXONE 1 GM/50 ML (PMX) 50 ML IVPB (12:29)
[2018-08-29] MEDS: VORICONAZOLE 200 MG/100 ML 100 ML IVPB ×3 (00:56→13:09)
[2018-08-29] MEDS: CLOTRIMAZOLE 10 MG TROCHE MT ×4 (00:56→21:40)
[2018-08-29] MEDS: PANTOPRAZOLE 40 MG INJ IV (05:51)
[2018-08-29 07:19] LABS: ADD MAN DIFF? NO
[2018-08-29 07:24] LABS: WHITE BLOOD COUNT 11.3 10^3/ul (4.8-10.8)
[2018-08-29 07:24] LABS: ABNORMAL IP MESSAGE 1; BASOPHILS % 0.1 % (0.0-2.0); HEMATOCRIT 28.4 % (42.0-52.0); HEMOGLOBIN 9.1 g/dl (14.0-18.0); LYMPHOCYTES # 0.4 10^3/ul (0.8-2.9); LYMPHOCYTES % 3.7 % (15.0-51.0); MEAN CORPUSCULAR HEMOGLOBIN 26.8 pg (29.0-33.0); MEAN CORPUSCULAR VOLUME 83.5 fl (82.0-101.0); MEAN PLATELET VOLUME 9.7 fl (7.4-10.4); MONOCYTE # 0.7 10^3/ul (0.3-0.9); MONOCYTES % 5.8 % (0.0-11.0); NEUTROPHIL # 10.1 10^3/ul (1.6-7.5); NEUTROPHILS % 89.7 % (39.0-77.0); PLATELET COUNT 351 10^3/UL (140-415); POSITIVE DIFF @See below; RED CELL DISTRIBUTION WIDTH 14.7 % (11.5-14.5)
[2018-08-29] MEDS: morphine 2 MG INJ IV ×3 (08:06→21:42)
[2018-08-29] MEDS: ENOXAPARIN 40 MG/0.4 ML SYG SC (08:10)
[2018-08-29] MEDS: DEXAMETHASONE 4 MG/ML 1 ML INJ IV (08:12)
[2018-08-29] MEDS ORDERED: DEXAMETHASONE 4 MG/ML 1 ML INJ IV (09:00)
[2018-08-29] MEDS: CEFTRIAXONE 1 GM/50 ML (PMX) 50 ML IVPB (11:46)
[2018-08-30] MEDS: VORICONAZOLE 200 MG/100 ML 100 ML IVPB ×3 (00:27→22:29)
[2018-08-30] MEDS: PANTOPRAZOLE 40 MG INJ IV (05:14)
[2018-08-30] MEDS: morphine 2 MG INJ IV ×3 (05:18→19:48)
[2018-08-30] MEDS: CLOTRIMAZOLE 10 MG TROCHE MT ×3 (08:45→22:28)
[2018-08-30] MEDS: DEXAMETHASONE 4 MG/ML 1 ML INJ IV (08:45)
[2018-08-30] MEDS: ENOXAPARIN 40 MG/0.4 ML SYG SC (08:46)
[2018-08-30] MEDS: CEFTRIAXONE 1 GM/50 ML (PMX) 50 ML IVPB (12:23)
[2018-08-31] MEDS: PANTOPRAZOLE 40 MG INJ IV (06:00)
[2018-08-31] MEDS: morphine 2 MG INJ IV (07:56)
[2018-09-01] MEDS ORDERED: DEXAMETHASONE 4 MG/ML 1 ML INJ IV (09:00)
[2018-09-03] MEDS ORDERED: DEXAMETHASONE 4 MG/ML 1 ML INJ IV (09:00)
== END 2018-08-31 09:10 | disposition home or self-care (01) | DRG 158 ==
LOC: 6WM 05:50 → 2NE 08-28 13:45
DX: B37.0 Candidal stomatitis (principal); C41.1 Malignant neoplasm of mandible; E87.1 Hypo-osmolality and hyponatremia; T78.3XXA Angioneurotic edema, initial encounter; R60.9 Edema, unspecified; T50.905A Adverse effect of unspecified drugs, medicaments and biological substances, initial encounter; R13.10 Dysphagia, unspecified; Z93.1 Gastrostomy status; I10 Essential (primary) hypertension; D72.829 Elevated white blood cell count, unspecified; Z92.21 Personal history of antineoplastic chemotherapy; Z92.3 Personal history of irradiation
CPT/HCPCS: 80048; 80053; 81001; 81003; 83735; 84100; 85025; 92610; 93306; 93970; 97161